=== PATIENT | female | born 1960 | race Caucasian/White ===

== ENCOUNTER 2023-07-07 11:30 | Emergency (ER) | payer OTHER ==
[2023-07-07] MEDS: Acetaminophen 500 MG Tab PO ONE (12:05)
[2023-07-07] MEDS: Meclizine 25 MG Tab PO ONE (12:05)
== END 2023-07-07 13:39 | disposition home or self-care (01) ==
LOC: VM.ED 11:30
DX: R42 Dizziness and giddiness (principal)
CPT/HCPCS: 70450; 99283; 99284; A9270-GY